=== PATIENT | female | born 1955 | race Caucasian/White ===

== ENCOUNTER 2020-01-30 10:28 | Emergency (ER) | payer MEDICAID ==
[~2020-01-30] VITALS: Ht 160 cm; Wt 50.0 kg
[2020-01-30 10:30] VITALS: Ht 160 cm; Wt 50.0 kg
[2020-01-30] MEDS ORDERED: ZOCOR40 MG PO (10:33)
[2020-01-30] MEDS ORDERED: LISINOPRIL40 MG PO (10:33)
[2020-01-30 10:49] LABS: BILIRUBIN NEGATIVE (NEGATIVE); GLUCOSE NEGATIVE (NEGATIVE); KETONE SMALL mg/dL (NEGATIVE); NITRITE NEGATIVE (NEGATIVE); UROBILINOGEN NORMAL (NORMAL)
[2020-01-30 10:56] LABS: BACTERIA FEW /hpf (NEGATIVE); EPITHELIAL CELLS 0-5 /hpf (0-5); RED CELLS - URINE 0-5 /hpf (0-5); WHITE CELLS - URINE 0-5 /hpf (NEGATIVE)
[2020-01-30 10:59] LABS: UDS - AMPHET POSITIVE QUAL (NEGATIVE); UDS - BARB NEGATIVE QUAL (NEGATIVE); UDS - BENZO POSITIVE QUAL (NEGATIVE); UDS - COCAINE NEGATIVE QUAL (NEGATIVE); UDS - OPIATE POSITIVE QUAL (NEGATIVE); UDS - PCP NEGATIVE QUAL (NEGATIVE); UDS - THC NEGATIVE QUAL (NEGATIVE)
[2020-01-30 11:07] LABS: WBC 27.9 10x3/uL (4.8-10.8)
[2020-01-30 11:08] LABS: HEMOGLOBIN 19.6 g/dL (12-16); MCH 30.8 pg (26.0-34.0); MCV 87.9 fL (80.0-100.0); MEAN PLATELET VOLUME 9.8 fL (7.4-10.4); PLATELET COUNT 472 10x3/uL (130-400); RBC 6.37 10x6/uL (4.00-5.40); RDW 12.9 % (11.5-14.5)
[2020-01-30 11:18] LABS: APTT 31.1 SECONDS (22.8-39.4); PROTIME 13.1 SECONDS (11.6-15.0)
[2020-01-30 11:21] LABS: CALC OSMOLALITY 283 mosm/kg (275-300); CALCIUM 10.7 mg/dL (8.5-10.1); CARBON DIOXIDE 26.4 mmol/L (21.0-32.0); CHLORIDE - SERUM 96 mmol/L (98-107); CREATININE - SERUM 1.4 mg/dL (0.6-1.3); GLUCOSE 139 mg/dL (74-106); POTASSIUM - SERUM 4.2 mmol/L (3.5-5.1); SODIUM 136 mmol/L (136-145); UREA NITROGEN 40 mg/dL (7-18); eGFR NON AFRICAN AMERICAN 40 mL/min (90-120)
[2020-01-30 11:37] LABS: ALBUMIN 4.2 g/dL (3.4-5.0); ALKALINE PHOSPHATASE 87 U/L (30-120); ALT (SGPT) 15 U/L (10-68); BILIRUBIN - TOTAL 0.84 mg/dL (0.2-1.3); CKMB 0.5 U/L (0.0-3.6); CREATINE KINASE 34 UL (21-215); MAGNESIUM - SERUM 2.2 mg/dL (1.8-2.4); PROTEIN - SERUM 9.1 g/dL (6.4-8.2); THYROID STIMULATING HORMONE 1.13 uIU/mL (0.36-3.74)
[2020-01-30 11:39] LABS: TROPONIN-I < 0.017 ng/mL (0.000-0.060)
[2020-01-30 11:43] LABS: MONOCYTES 4 % (2-11); NEUTROPHILS 95 % (40-80); PLATELET ESTIMATE NORMAL
[2020-01-30 14:21] VITALS: BP 130/50
== END 2020-01-30 14:26 | disposition other institution (70) ==
LOC: D.ER 10:28
PROVIDERS: Emergency Medicine
DX: I16.0 Hypertensive urgency (principal); R79.89 Other specified abnormal findings of blood chemistry; E86.0 Dehydration; G93.40 Encephalopathy, unspecified; I10 Essential (primary) hypertension; I63.9 Cerebral infarction, unspecified; D75.1 Secondary polycythemia; A41.9 Sepsis, unspecified organism; R65.20 Severe sepsis without septic shock; F19.10 Other psychoactive substance abuse, uncomplicated